=== PATIENT | male | born 1970 | race African-American/Black ===

== ENCOUNTER 2020-03-01 09:34 | Emergency (ER) | payer MEDICAID ==
[2020-03-01 10:27] LABS: ABSOLUTE BASOPHILS # (AUTO) 0.1 10^3/uL (0.0-0.2); ABSOLUTE EOSINOPHILS # (AUTO) 0.4 10^3/uL (0.0-0.6); ABSOLUTE LYMPHOCYTES (AUTO) 0.7 10^3/uL (0.5-4.7); ABSOLUTE MONOCYTES (AUTO) 0.6 10^3/uL (0.1-1.4); ABSOLUTE NEUT (AUTO) 3.2 10^3/uL (1.7-8.2); BASOPHILS % (AUTO) 1.1 % (0-2); EOSINOPHILS % (AUTO) 7.2 % (0-6); HEMATOCRIT 35.6 % (37.9-51.0); HEMOGLOBIN 11.4 g/dL (13.5-17.0); LYMPHOCYTES % (AUTO) 13.6 % (13-45); MEAN CORPUSCULAR HEMOGLOBIN 27.4 pg (27.0-33.4); MEAN CORPUSCULAR HGB CONC 32.1 g/dL (32.0-36.0); MEAN CORPUSCULAR VOLUME 85 fl (80-97); MONOCYTES % (AUTO) 12.7 % (3-13); PLATELET COUNT 193 10^3/uL (150-450); RED BLOOD COUNT 4.17 10^6/uL (4.35-5.55); RED CELL DISTRIBUTION WIDTH 18.3 % (11.5-14.0); SEGMENTED NEUTROPHILS % (AUTO) 65.4 % (42-78); TOTAL CELLS COUNTED % (AUTO) 100 %; WHITE BLOOD COUNT 4.9 10^3/uL (4.0-10.5)
[2020-03-01 10:40] LABS: ALBUMIN 4.9 g/dL (3.5-5.0); ALKALINE PHOSPHATASE 45 U/L (38-126); ASPARTATE AMINO TRANSFERASE 21 U/L (17-59); BILIRUBIN,DIRECT 0.4 mg/dL (0.0-0.4); BILIRUBIN,TOTAL 0.5 mg/dL (0.2-1.3); BLOOD UREA NITROGEN 97 mg/dL (7-20); GLUCOSE 140 mg/dL (75-110); POTASSIUM 5.6 mmol/L (3.6-5.0); TOTAL PROTEIN 8.3 g/dL (6.3-8.2)
[2020-03-01 10:45] LABS: CARBON DIOXIDE 23 mmol/L (22-30); CHLORIDE 96 mmol/L (98-107)
[2020-03-01] MEDS ORDERED: ONDANSETRON HCL INJ/PF 4 MG/2 ML SDV IV ONE (10:46)
[2020-03-01] MEDS ORDERED: HYDROMORPHONE HCL INJ/PF 2 MG/ML AMPULE IV ONE ×2 (10:47→15:12)
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
[2020-03-01 10:53] LABS: ANION GAP 20 (5-19); CALCIUM 6.5 mg/dL (8.4-10.2)
--- NOTE | 2020-03-01 11:51 | RADIOLOGY REPORT (SQ) ---
EXAM DESCRIPTION: CT LUMBAR SPINE WITHOUT IMAGES COMPLETED DATE/TIME: 03/01/2020 11:35 am REASON FOR STUDY: lower back pain COMPARISON: None. TECHNIQUE: Axial images acquired through the lumbar spine without intravenous contrast. Images revi ewed with lung, soft tissue and bone windows. Reconstructed coronal and sagittal MPR images reviewed . All images stored on PACS. All CT scanners at this facility use dose modulation, iterative reconstruction, and/or weight based d osing when appropriate to reduce radiation dose to as low as reasonably achievable (ALARA). [facility]: Dose Right [facility]: CareDose [facility]: Dose Right [facility]: Teradose 4D [facility]: My [employer] RADIATION DOSE: mGy. LIMITATIONS: None. FINDINGS: SEGMENTATION: Normal. No transitional anatomy. ALIGNMENT: Normal. VERTEBRAL BODIES: No fractures. No dislocation. No acute findings. DISCS: Multilevel degenerative disc disease with disc space narrowing. Suspect exit foraminal stenos is L2-3, L3-4, L4-5. Schmorl's nodes. PEDICLES, TRANSVERSE PROCESSES: No fractures. No dislocation. No acute findings. FACETS, POSTERIOR ELEMENTS: No fractures. No dislocation. No spinal stenosis. HARDWARE: None in the spine. VISUALIZED RIBS: No fractures. SOFT TISSUES: No significant or acute finding in adjacent soft tissues. OTHER: No other significant finding. IMPRESSION: Multilevel degenerative disc disease with likely exit foraminal narrowing. TECHNICAL DOCUMENTATION: JOB ID: [id number] Quality ID # 436: Final reports with documentation of one or more dose reduction techniques (e.g., Au tomated exposure control, adjustment of the mA and/or kV according to patient size, use of iterative reconstruction technique) 2010 [employer]- All Rights Reserved Reading location - IP/workstation name: [email or web address]
[2020-03-01] MEDS ORDERED: FAMOTIDINE INJ/PF 20 MG/2 ML SDV IV ONE (12:53)
[2020-03-01] MEDS ORDERED: METHOCARBAMOL INJ/PF 1000 MG/10 ML SDV IV ONE (12:54)
[2020-03-01] MEDS ORDERED: CLONIDINE HCL 0.2 MG TABLET PO ONE (16:49)
[2020-03-01 17:19] VITALS: BP 200/82
== END 2020-03-01 17:17 | disposition home or self-care (01) ==
LOC: ER 09:34
DX: S39.012A Strain of muscle, fascia and tendon of lower back, initial encounter (principal); M62.838 Other muscle spasm; M54.9 Dorsalgia, unspecified; R10.30 Lower abdominal pain, unspecified; Z88.8 Allergy status to other drugs, medicaments and biological substances; X58.XXXA Exposure to other specified factors, initial encounter
CPT/HCPCS: 96376; 99284; 96375; 96365; 36415; 83690; 85025; 80053; 72131; J3490; J2800; J1170; J2405; S0028

== ENCOUNTER 2020-03-03 20:06 | Emergency (ER) | payer MEDICAID ==
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
--- NOTE | 2020-03-03 21:41 | EKG REPORT ---
SEVERITY:- ABNORMAL ECG - SINUS RHYTHM FIRST DEGREE AV BLOCK NONSPECIFIC INTRAVENTRICULAR CONDUCTION DELAY BORDERLINE R WAVE PROGRESSION, ANTERIOR LEADS : Confirmed by: Remy Smith 03-Mar-2020 21:40:28
[2020-03-03 22:19] LABS: ABSOLUTE EOSINOPHILS # (AUTO) 0.4 10^3/uL (0.0-0.6); ABSOLUTE LYMPHOCYTES (AUTO) 0.6 10^3/uL (0.5-4.7); ABSOLUTE MONOCYTES (AUTO) 0.6 10^3/uL (0.1-1.4); HEMOGLOBIN 11.2 g/dL (13.5-17.0); TOTAL CELLS COUNTED % (AUTO) 100 %
[2020-03-03 22:23] LABS: ABSOLUTE NEUT (AUTO) 3.8 10^3/uL (1.7-8.2); BASOPHILS % (AUTO) 0.8 % (0-2); EOSINOPHILS % (AUTO) 6.6 % (0-6); HEMATOCRIT 34.8 % (37.9-51.0); LYMPHOCYTES % (AUTO) 11.8 % (13-45); MEAN CORPUSCULAR HEMOGLOBIN 27.3 pg (27.0-33.4); MEAN CORPUSCULAR HGB CONC 32.2 g/dL (32.0-36.0); MEAN CORPUSCULAR VOLUME 85 fl (80-97); MONOCYTES % (AUTO) 11.4 % (3-13); PLATELET COUNT 191 10^3/uL (150-450); RED BLOOD COUNT 4.11 10^6/uL (4.35-5.55); RED CELL DISTRIBUTION WIDTH 17.9 % (11.5-14.0); SEGMENTED NEUTROPHILS % (AUTO) 69.4 % (42-78); WHITE BLOOD COUNT 5.4 10^3/uL (4.0-10.5)
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
[2020-03-03 23:24] LABS: ALBUMIN 4.8 g/dL (3.5-5.0); ALKALINE PHOSPHATASE 46 U/L (38-126); ASPARTATE AMINO TRANSFERASE 18 U/L (17-59); BILIRUBIN,DIRECT 0.5 mg/dL (0.0-0.4); BILIRUBIN,TOTAL 0.6 mg/dL (0.2-1.3); GLUCOSE 80 mg/dL (75-110); TOTAL PROTEIN 8.2 g/dL (6.3-8.2)
[2020-03-03 23:29] LABS: CARBON DIOXIDE 15 mmol/L (22-30); CHLORIDE 97 mmol/L (98-107)
[2020-03-03 23:32] LABS: BLOOD UREA NITROGEN 131 mg/dL (7-20)
[2020-03-03 23:38] LABS: ANION GAP 25 (5-19)
[2020-03-03] MEDS ORDERED: CALCIUM GLUCONATE 1000 MG/10 ML INJ IV ONE (23:42)
[2020-03-03] MEDS ORDERED: SODIUM POLYSTYRENE SULFONATE 15 GM/60 ML PO ONE (23:43)
[2020-03-03] MEDS ORDERED: SODIUM BICARBONATE 8.4% INJ 50 MEQ/50 ML DISP.SYRIN IV ONE (23:43)
[2020-03-03] MEDS ORDERED: DEXTROSE 50%-WATER 25 GM/50 ML DISP.SYRIN IV ONE (23:44)
[2020-03-03] MEDS ORDERED: INSULIN REG, HUMAN 100 UNIT/ML 3 ML VIAL (PYX) IV ONE (23:44)
[2020-03-03 23:46] LABS: POTASSIUM 7.6 mmol/L (3.6-5.0)
[2020-03-03 23:47] LABS: CALCIUM 5.8 mg/dL (8.4-10.2)
[2020-03-04] MEDS ORDERED: INSULIN REG, HUMAN 100 UNIT/ML 3 ML VIAL (PYX) IV ONE ×2 (03:30→04:54)
[2020-03-04] MEDS ORDERED: SODIUM BICARBONATE 8.4% INJ 50 MEQ/50 ML DISP.SYRIN IV ONE (03:30)
[2020-03-04] MEDS ORDERED: SODIUM POLYSTYRENE SULFONATE 15 GM/60 ML PO ONE (03:30)
[2020-03-04] MEDS ORDERED: CALCIUM GLUCONATE 1000 MG/10 ML INJ IV ONE (03:30)
[2020-03-04] MEDS ORDERED: DEXTROSE 50%-WATER 25 GM/50 ML DISP.SYRIN IV ONE ×2 (03:30→04:53)
[2020-03-04] MEDS ORDERED: ONDANSETRON HCL INJ/PF 4 MG/2 ML SDV IV ONE (05:13)
[2020-03-04 08:20] LABS: ALBUMIN 4.5 g/dL (3.5-5.0); ALKALINE PHOSPHATASE 43 U/L (38-126); ASPARTATE AMINO TRANSFERASE 19 U/L (17-59); BILIRUBIN,DIRECT 0.3 mg/dL (0.0-0.4); BILIRUBIN,TOTAL 0.6 mg/dL (0.2-1.3); GLUCOSE 86 mg/dL (75-110); TOTAL PROTEIN 7.6 g/dL (6.3-8.2)
[2020-03-04 08:26] LABS: CARBON DIOXIDE 21 mmol/L (22-30); CHLORIDE 97 mmol/L (98-107)
[2020-03-04 08:36] LABS: ANION GAP 24 (5-19); BLOOD UREA NITROGEN 133 mg/dL (7-20); POTASSIUM 5.9 mmol/L (3.6-5.0)
[2020-03-04 08:38] LABS: CALCIUM 5.8 mg/dL (8.4-10.2)
[2020-03-04] MEDS ORDERED: NORMAL SALINE 1000 ML 1,000 ML IV PRN (09:01)
[2020-03-04] MEDS ORDERED: HEPARIN SOD (PORCINE) 1,000 UNIT/ML 10 ML VIAL IV PRN ×2 (11:13→12:00)
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
[2020-03-04 20:25] LABS: ANION GAP 18 (5-19); CALCIUM 7.9 mg/dL (8.4-10.2); CARBON DIOXIDE 24 mmol/L (22-30); CHLORIDE 95 mmol/L (98-107); GLUCOSE 84 mg/dL (75-110)
[2020-03-04 20:52] LABS: BLOOD UREA NITROGEN 76 mg/dL (7-20); POTASSIUM 4.8 mmol/L (3.6-5.0)
[2020-03-05] MEDS ORDERED: ACETAMINOPHEN 325 MG TABLET PO ONE (05:15)
[2020-03-05 06:52] VITALS: BP 168/94
== END 2020-03-05 13:00 | disposition home or self-care (01) ==
LOC: ER 20:06
DX: E87.5 Hyperkalemia (principal); E87.2 Acidosis; E83.51 Hypocalcemia; I12.0 Hypertensive chronic kidney disease with stage 5 chronic kidney disease or end stage renal disease; E11.22 Type 2 diabetes mellitus with diabetic chronic kidney disease; N18.6 End stage renal disease; N17.9 Acute kidney failure, unspecified; E66.9 Obesity, unspecified; Z99.2 Dependence on renal dialysis; S39.92XD Unspecified injury of lower back, subsequent encounter; R11.0 Nausea; R10.9 Unspecified abdominal pain; X58.XXXD Exposure to other specified factors, subsequent encounter; Z79.899 Other long term (current) drug therapy; Z88.8 Allergy status to other drugs, medicaments and biological substances
CPT/HCPCS: 93005; 99284; 96374; 96375; 36415; 87070; 87880; 82962; 85025; 80053; 74176; 93010; J3490 ×4; J0610; J1644; J1815; J2405

== ENCOUNTER 2020-03-22 15:20 | Emergency (ER) | payer MEDICAID ==
[2020-03-22 15:26] VITALS: BP 146/80
--- NOTE | 2020-03-22 15:32 | ER Document Report ---
ED Medical Screen (RME) - General Chief Complaint: Leg Swelling Stated Complaint: LEG SWELLING Time Seen by Provider: 03/22/20 15:24 TRAVEL OUTSIDE OF THE [place] IN LAST 30 DAYS: No - HPI Notes: 03/22/20 15:30 49-year-old male with a history of type 2 diabetes who is insulin-dependent, end-stage renal disease on dialysis, CHF presents emergency room with bilateral leg swelling and shortness of breath that started today. Patient states he did miss dialysis today due to this issue. He typically goes on Tuesdays and Saturdays. Denies any chest pain. Denies any fevers or chills. States he is feeling a little anxious right now due to concerns of what is going on with him. Is not on blood thinners. Did not take his blood pressure medications today. States he has had 3 episodes of CHF in the past. He does go to [facility] for his dialysis. I have greeted and performed a rapid initial assessment of this patient. A comprehensive ED assessment and evaluation of the patient, analysis of test results and completion of the medical decision making process will be conducted by additional ED providers. PHYSICAL EXAMINATION: GENERAL: Well-appearing, well-nourished and in no acute distress. HEAD: Atraumatic, normocephalic. CV: s1, s2 regular LUNGS: No respiratory distress SKIN: Warm, Dry, normal turgor, no rashes or lesions noted. bilateral leg swelling, pitting +1 - Related Data Allergies/Adverse Reactions: morphine Allergy (Intermediate, Verified 03/22/20 15:27) Nausea tramadol Allergy (Intermediate, Verified 03/22/20 15:27) Nausea latex Allergy (Verified 03/22/20 15:27) Past Medical History - Past Medical History Cardiac Medical History: Reports: Hx Coronary Artery Disease, Hx Heart Attack - June 2019 Pulmonary Medical History: Reports: Hx COPD, Hx Sleep Apnea - Not using CPAP Endocrine Medical History: Reports: Hx Diabetes Mellitus Type 2 Renal/ Medical History: Reports: Hx End Stage Renal Disease GI Medical History: Reports: Hx Gastroesophageal Reflux Disease Past Surgical History: Reports: Hx Vascular Surgery - PermCath placement for dialysis Physical Exam - Vital signs Vitals: Temp Pulse Resp BP Pulse Ox 99.3 F 100 20 146/80 H 95 03/22/20 15:25 03/22/20 15:25 03/22/20 15:25 03/22/20 15:25 03/22/20 15:25 Course - Vital Signs Vital signs: Temp Pulse Resp BP Pulse Ox 99.3 F 100 20 146/80 H 95 03/22/20 15:25 03/22/20 15:25 03/22/20 15:25 03/22/20 15:25 03/22/20 15:25
--- NOTE | 2020-03-22 17:01 | RADIOLOGY REPORT (SQ) ---
EXAM DESCRIPTION: CHEST 2 VIEWS IMAGES COMPLETED DATE/TIME: 03/22/2020 3:20 pm REASON FOR STUDY: sob COMPARISON: None. EXAM PARAMETERS: NUMBER OF VIEWS: two views TECHNIQUE: Digital Frontal and Lateral radiographic views of the chest acquired. RADIATION DOSE: NA LIMITATIONS: none FINDINGS: LUNGS AND PLEURA: No opacities, masses or pneumothorax. No pleural effusion. MEDIASTINUM AND HILAR STRUCTURES: No masses or contour abnormalities. HEART AND VASCULAR STRUCTURES: Heart normal size. No evidence for failure. BONES: No acute findings. HARDWARE: Left central venous catheter with tip in the right atrium. OTHER: No other significant finding. IMPRESSION: NO ACUTE RADIOGRAPHIC FINDING IN THE CHEST. TECHNICAL DOCUMENTATION: JOB ID: [id number] 2010 [employer]- All Rights Reserved Reading location - IP/workstation name: [email or web address]
[2020-03-22 18:15] LABS: ABSOLUTE EOSINOPHILS # (AUTO) 0.2 10^3/uL (0.0-0.6); ABSOLUTE LYMPHOCYTES (AUTO) 0.5 10^3/uL (0.5-4.7); ABSOLUTE MONOCYTES (AUTO) 0.8 10^3/uL (0.1-1.4); ABSOLUTE NEUT (AUTO) 4.5 10^3/uL (1.7-8.2); BASOPHILS % (AUTO) 0.6 % (0-2); EOSINOPHILS % (AUTO) 4.1 % (0-6); HEMATOCRIT 35.3 % (37.9-51.0); HEMOGLOBIN 11.1 g/dL (13.5-17.0); MEAN CORPUSCULAR HEMOGLOBIN 26.8 pg (27.0-33.4); MEAN CORPUSCULAR HGB CONC 31.3 g/dL (32.0-36.0); MEAN CORPUSCULAR VOLUME 86 fl (80-97); MONOCYTES % (AUTO) 12.6 % (3-13); PLATELET COUNT 146 10^3/uL (150-450); RED BLOOD COUNT 4.13 10^6/uL (4.35-5.55); RED CELL DISTRIBUTION WIDTH 17.9 % (11.5-14.0); SEGMENTED NEUTROPHILS % (AUTO) 73.7 % (42-78); TOTAL CELLS COUNTED % (AUTO) 100 %; WHITE BLOOD COUNT 6.1 10^3/uL (4.0-10.5)
[2020-03-22 18:46] LABS: TROPONIN I 0.053 ng/mL
--- NOTE | 2020-03-22 18:58 | ER Document Report ---
ED General - General Chief Complaint: Leg Swelling Stated Complaint: LEG SWELLING Time Seen by Provider: 03/22/20 15:24 Mode of Arrival: Ambulatory Notes: 03/22/20 15:31 - ED Nursing Note by LUNA MACARIO Num: [id number] : 1970 Patient Age: 49 pt comes to ed from home via pov brought by self for c/o bilateral lower extermity swelling with SOB. Pt is Hemodialysis pt with //tue schedule. pt received dialysis today of unknown removal amount but does not feel it improved him at all. pt ia anuric, with permacath to left upper chest and nonfunctioning fistula to left lower arm. pt reports dialysis usually pulls of to his "dry weight of 137." pt did not take HTN meds today. ED Medical Screen (RME) - General Chief Complaint: Leg Swelling Stated Complaint: LEG SWELLING Time Seen by Provider: 03/22/20 15:24 TRAVEL OUTSIDE OF THE [place] IN LAST 30 DAYS: No - HPI Notes: 03/22/20 15:30 49-year-old male with a history of type 2 diabetes who is insulin-dependent, end-stage renal disease on dialysis, CHF presents emergency room with bilateral leg swelling and shortness of breath that started today. Patient states he did miss dialysis today due to this issue. He typically goes on Tuesdays and Saturdays. Denies any chest pain. Denies any fevers or chills. States he is feeling a little anxious right now due to concerns of what is going on with him. Is not on blood thinners. Did not take his blood pressure medications today. States he has had 3 episodes of CHF in the past. He does go to [facility] for his dialysis. I have greeted and performed a rapid initial assessment of this patient. A comprehensive ED assessment and evaluation of the patient, analysis of test results and completion of the medical decision making process will be conducted by additional ED providers. PHYSICAL EXAMINATION: GENERAL: Well-appearing, well-nourished and in no acute distress. HEAD: Atraumatic, normocephalic. CV: s1, s2 regular LUNGS: No respiratory distress SKIN: Warm, Dry, normal turgor, no rashes or lesions noted. bilateral leg swelling, pitting +1 my notes 49-year-old black male arrives by POV with chief complaint of right flank pain as well as bilateral leg pain after having dialysis today pulling off 1 to 2 L only. Patient reports usually gets much more drawn off. He reports she has diabetic neuropathy and is numb on the plantar aspect of feet but becomes more painful as the ankles and legs progressed to his knees. He has some edema that are chronic stasis to bilateral legs. He mainly complains of right flank greater than left flank and reports Dilaudid and [place] usually work on his pain. He reports morphine tramadol because other problems. Patient has morbid obesity and reports "if he has to lay on the gurney much longer he might as well leave." Patient reports he makes very little urine almost none. He reports he has had congestive heart failure in the past but his chest x-ray is within normal limits today. TRAVEL OUTSIDE OF THE [place] IN LAST 30 DAYS: No - Related Data Allergies/Adverse Reactions: morphine Allergy (Intermediate, Verified 03/22/20 15:27) Nausea tramadol Allergy (Intermediate, Verified 03/22/20 15:27) Nausea latex Allergy (Verified 03/22/20 15:27) Home Medications: glipizide, catapres, hydralazine, atorvastatin Past Medical History - General Information source: Patient - Social History Smoking Status: Never Smoker Cigarette use (# per day): No Chew tobacco use (# tins/day): No Smoking Education Provided: No Frequency of alcohol use: None Drug Abuse: None Lives with: Family Family History: Reviewed & Not Pertinent Patient has suicidal ideation: No Patient has homicidal ideation: No - Past Medical History Cardiac Medical History: Reports: Hx Coronary Artery Disease, Hx Heart Attack - June 2019 Pulmonary Medical History: Reports: Hx COPD, Hx Sleep Apnea - Not using CPAP Endocrine Medical History: Reports: Hx Diabetes Mellitus Type 2 Renal/ Medical History: Reports: Hx End Stage Renal Disease GI Medical History: Reports: Hx Gastroesophageal Reflux Disease Past Surgical History: Reports: Hx Vascular Surgery - PermCath placement for dialysis Review of Systems - Review of Systems Constitutional: No symptoms reported EENT: No symptoms reported Cardiovascular: No symptoms reported Respiratory: No symptoms reported Gastrointestinal: No symptoms reported Genitourinary: No symptoms reported Male Genitourinary: No symptoms reported Musculoskeletal: See HPI, Back pain, Leg swelling - If Skin: No symptoms reported Hematologic/Lymphatic: No symptoms reported Neurological/Psychological: No symptoms reported Physical Exam - Vital signs Vitals: Temp Pulse Resp BP Pulse Ox 99.3 F 100 20 146/80 H 95 03/22/20 15:25 03/22/20 15:25 03/22/20 15:25 03/22/20 15:25 03/22/20 15:25 Interpretation: Febrile - General General appearance: Alert - HEENT Head: Normocephalic, Atraumatic Eyes: Normal Pupils: PERRL Mouth/Lips: Normal Mucous membranes: Normal Pharynx: Normal Neck: Normal - Respiratory Respiratory status: No respiratory distress Chest status: Nontender Breath sounds: Normal Chest palpation: Normal - Cardiovascular Rhythm: Regular Heart sounds: Normal auscultation Murmur: No - Abdominal Inspection: Morbidly Obese Distension: No distension Bowel sounds: Normal Tenderness: Tender - r flank - Rectal Prostate: Other - deferred - Genitourinary Scrotum: Other - deferred - Back Back: Tender - right flank mm and cva pain on p/p - Extremities General upper extremity: Normal inspection General lower extremity: Edema, Other - numbness to kayy plantar feet with mild stasis of kayy legs - Neurological Neuro grossly intact: Yes Cognition: Normal Orientation: AAOx4 [place] Coma Scale Eye Opening: Spontaneous [place] Coma Scale Verbal: Oriented [place] Coma Scale Motor: Obeys Commands [place] Coma Scale Total: 15 Speech: Normal Motor strength normal: LUE, RUE, LLE, RLE Sensory: Normal - Psychological Associated symptoms: Normal affect - Skin Skin Temperature: Warm Skin Moisture: Dry Course - Vital Signs Vital signs: Temp Pulse Resp BP Pulse Ox 99.3 F 100 20 146/80 H 95 03/22/20 15:25 03/22/20 15:25 03/22/20 15:25 03/22/20 15:25 03/22/20 15:25 - Laboratory Result Diagrams: 03/22/20 17:55 03/22/20 17:55 Laboratory results interpreted by me: 03/22/20 03/22/20 17:55 17:55 RBC 4.13 L Hgb 11.1 L Hct 35.3 L MCH 26.8 L MCHC 31.3 L RDW 17.9 H Plt Count 146 L Lymph % (Auto) 9.0 L NT-Pro-B Natriuret Pep 9980 H - Diagnostic Test Radiology reviewed: Reports reviewed Discharge - Discharge Clinical Impression: End-stage renal disease on hemodialysis, Stasis dermatitis of both legs, Bilateral flank pain Condition: Good Disposition: HOME, SELF-CARE Additional Instructions: Follow-up with personal doctor this week and get her usual dialysis as scheduled. Return to ER for true emergencies take medicines as directed.
[2020-03-22] MEDS ORDERED: HYDROMORPHONE HCL INJ/PF 2 MG/ML AMPULE IV ONE (19:14)
[2020-03-22] MEDS ORDERED: BUMETANIDE INJ/PF 1 MG/4 ML SDV IV ONE (19:15)
[2020-03-22] MEDS ORDERED: HYDROCODONE/ACETAMINOPHEN 5-325 MG (6 TAB/ER DISP) PO PRN (19:24)
[2020-03-22 19:54] LABS: ALBUMIN 4.6 g/dL (3.5-5.0); ALKALINE PHOSPHATASE 52 U/L (38-126); ASPARTATE AMINO TRANSFERASE 21 U/L (17-59); BILIRUBIN,DIRECT 0.4 mg/dL (0.0-0.4); BILIRUBIN,TOTAL 0.7 mg/dL (0.2-1.3); BLOOD UREA NITROGEN 85 mg/dL (7-20); GLUCOSE 95 mg/dL (75-110); TOTAL PROTEIN 8.2 g/dL (6.3-8.2)
--- NOTE | 2020-03-22 19:54 | EKG REPORT ---
SEVERITY:- ABNORMAL ECG - SINUS RHYTHM PROLONGED QT INTERVAL NONSPECIFIC INTRAVENTRICULAR CONDUCTION DELAY NONSPECIFIC LATERAL ST-T CHANGES : Confirmed by: Lew Merrill MD 22-Mar-2020 19:53:43
[2020-03-22 19:59] LABS: ANION GAP 19 (5-19); CARBON DIOXIDE 22 mmol/L (22-30); CHLORIDE 96 mmol/L (98-107)
[2020-03-22 20:02] LABS: POTASSIUM 4.6 mmol/L (3.6-5.0)
[2020-03-22 20:04] LABS: CALCIUM 6.5 mg/dL (8.4-10.2)
== END 2020-03-22 20:16 | disposition home or self-care (01) ==
LOC: ER 15:20
DX: R10.9 Unspecified abdominal pain (principal); M79.605 Pain in left leg; M79.604 Pain in right leg; Z20.828 Contact with and (suspected) exposure to other viral communicable diseases; E11.22 Type 2 diabetes mellitus with diabetic chronic kidney disease; I12.0 Hypertensive chronic kidney disease with stage 5 chronic kidney disease or end stage renal disease; N18.6 End stage renal disease; E66.01 Morbid (severe) obesity due to excess calories; Z99.2 Dependence on renal dialysis; Z79.4 Long term (current) use of insulin; Z91.040 Latex allergy status
CPT/HCPCS: 93005; 99284; 36415; 82962; 85025; 87635; 80053; 84484; 83880; 71046; 93010; C9803; J3490